=== PATIENT | female | born 1970 | race Caucasian/White ===

== ENCOUNTER 2017-05-31 11:20 | Emergency (ER) | payer BC, OTHER ==
[2017-05-31] MEDS ORDERED: Ketorolac INJ* 60 MG/2 ML VIAL IM ONE (12:43)
[2017-05-31] MEDS ORDERED: Dexamethasone TAB* 4 MG PO ONE (12:43)
[2017-05-31] MEDS ORDERED: Cyclobenzaprine TAB* 10 MG PO ONE (12:44)
[2017-05-31] MEDS ORDERED: oxyCODONE/Acetamin 5/325 MG* TAB PO ONE (12:45)
--- NOTE | 2017-05-31 12:48 | ED ---
Back Pain - HPI Summary HPI Summary: 46F presents with back pain for a week. She was lifting apples a week ago and the next day her pain started. She states that pain is above right hip. She denies any numbness or tingling. She denies any fever. She denies any loss of bowel or bladder or saddle anaesthesia. She went to her primary and they did an xray. She denies any pain down the leg. She has been taking ibuprofen without relief. - History of Current Complaint Chief Complaint: EDBackInjuryPain Stated Complaint: LOWER BACK/HIP PAIN Time Seen by Provider: 05/31/17 11:31 Pain Intensity: 8 - Allergies/Home Medications Allergies/Adverse Reactions: Allergies Allergy/AdvReac Type Severity Reaction Status Date / Time No Known Allergies Allergy Verified 05/31/17 11:24 PMH/Surg Hx/FS Hx/Imm Hx Endocrine/Hematology History: Denies: Hx Anticoagulant Therapy Cardiovascular History: Denies: Hx Myocardial Infarction Infectious Disease History: No Infectious Disease History: Denies: Traveled Outside the [place] in Last 30 Days - Family History Known Family History: Positive: Hypertension - Social History Alcohol Use: Occasionally Substance Use Type: Reports: None Smoking Status (MU): Never Smoked Tobacco Review of Systems Negative: Fever Negative: Chest Pain Negative: Shortness Of Breath Positive: Myalgia - right sided back pain All Other Systems Reviewed And Are Negative: Yes Physical Exam Triage Information Reviewed: Yes Vital Signs On Initial Exam: Initial Vitals Temp Pulse Resp BP Pulse Ox 97.7 F 82 16 153/93 99 05/31/17 11:21 05/31/17 11:21 05/31/17 11:21 05/31/17 11:21 05/31/17 11:21 Vital Signs Reviewed: Yes Appearance: Positive: Pain Distress Skin: Positive: Warm, Dry Head/Face: Positive: Normal Head/Face Inspection Eyes: Positive: Normal, EOMI, JUANA, Conjunctiva Clear ENT: Positive: Normal ENT inspection, Pharynx normal, TMs normal Respiratory/Lung Sounds: Positive: Clear to Auscultation, Breath Sounds Present Cardiovascular: Positive: Normal, RRR Abdomen Description: Positive: Nontender, Soft Bowel Sounds: Positive: Present Musculoskeletal: Positive: Strength/ROM Intact - right hip, Limited @ - back, Other - no midline tenderness back, tenderness to right side of back, pos ANDREW test, neg SLR, good pulses, Neurological: Positive: Reflexes Intact - patella Psychiatric: Positive: Normal - Keven Coma Scale Coma Scale Total: 15 Diagnostics - Vital Signs Vital Signs Temp Pulse Resp BP Pulse Ox 05/31/17 11:21 97.7 F 82 16 153/93 99 - Laboratory Lab Statement: Any lab studies that have been ordered have been reviewed, and results considered in the medical decision making process. - CT back CT Interpretation: Positive (See Comments) - IMPRESSION: MODERATE BROAD-BASED CIRCUMFERENTIAL BULGING THE DISC AT L4-L5 ECCENTRIC TO THE RIGHT AND MODERATE SIZE BROAD-BASED CENTRAL PROTRUSION AT L5-S1 WITH MILD DEGENERATIVE DISC SPACE NARROWING. SUGGEST FOLLOW-UP NONEMERGENT MR IMAGING IF THERE IS PERSISTENT CONCERN OR RADICULAR SYMPTOMS. CT Interpretation Completed By: Radiologist Back Pain Course/Dx - Course Course Of Treatment: 46F presents with back pain for a week. She was lifting apples a week ago and the next day her pain started. She states that pain is above right hip. She denies any numbness or tingling. She denies any fever. She denies any loss of bowel or bladder or saddle anaesthesia. She went to her primary and they did an xray. She denies any pain down the leg. She has been taking ibuprofen without relief. she is in visible pain distress. pos ANDREW test , tenderness of SI joint. 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 neg SLR. CT shows herniated disk. will place on flexeril and steriod and narcotic for break through pain. will have follow up with primary. patient understands and agrees with plan. - Diagnoses Differential Diagnosis/HQI/PQRI: Positive: Herniated Disc, Strain, Sprain Provider Diagnoses: Back pain Discharge - Discharge Plan Condition: Good Disposition: HOME Prescriptions: Cyclobenzaprine TAB* [Flexeril 10 MG TAB*] 10 mg PO TID PRN #15 tab PRN Reason: Pain Methylprednisolone [Medrol Dosepak 4 MG*] 4 mg PO .SEE ERIK INSTRUCTION #1 packet oxyCODONE/Acetamin 5/325 MG* [Percocet 5/325 TAB*] 1 tab PO Q6H PRN #8 tab MDD 4 PRN Reason: Pain - Severe Patient Education Materials: Back Pain (ED) Referrals: Dee Nielsen NP [Primary Care Provider] - Additional Instructions: Follow directions on package for Medrol pack Take muscle relaxers three times a day for 3 days Apply lidocaine patches to area for up to 12 hours in one 24 hour period Use ibuprofen or Tylenol for pain every 6 hours ice/heat area, move as much as possible Follow up with primary within 5 days Return to ED if unable to ambulate or develop any new or worsening symptoms
[2017-05-31 13:15] LABS: Urine Bacteria Absent (Absent); Urine Bilirubin Negative (Negative); Urine Glucose Negative (Negative); Urine Nitrite Negative (Negative)
--- NOTE | 2017-05-31 13:31 | RAD ---
INDICATION: Back pain COMPARISON: None TECHNIQUE: Noncontrast axial source images was performed from the thoracolumbar junction to the sacrum. Coronal and and sagittal reformatted images were generated. FINDINGS: Vertebrae: There is no fracture or acute focal bony lesion. Alignment: The lumbar vertebrae are normally aligned. Central Canal: There is moderate circumferential bulging the disc at L4-L5 mildly eccentric to the right. There is a moderate-sized, broad-based central protrusion at L5-S1. The remaining canal and foramina appear widely patent. MR imaging is a more sensitive method to evaluate the canal and foramina. Intervertebral disc spaces: There is minor disc space narrowing about L5-S1. The height of the remaining disc spaces are well-maintained.. Soft tissues: The paravertebral soft tissues are normal. Other: None IMPRESSION: MODERATE BROAD-BASED CIRCUMFERENTIAL BULGING THE DISC AT L4-L5 ECCENTRIC TO THE RIGHT AND MODERATE SIZE BROAD-BASED CENTRAL PROTRUSION AT L5-S1 WITH MILD DEGENERATIVE DISC SPACE NARROWING. SUGGEST FOLLOW-UP NONEMERGENT MR IMAGING IF THERE IS PERSISTENT CONCERN OR RADICULAR SYMPTOMS.
[2017-05-31 14:47] VITALS: BP 138/72
== END 2017-05-31 14:46 | disposition home or self-care (01) ==
LOC: ED 11:20
DX: M54.9 Dorsalgia, unspecified (principal)
CPT/HCPCS: 72131; 81003; 81015; 96372; 99282; A9270-GY; J1885; J8540

== ENCOUNTER 2017-12-17 03:24 | Emergency (ER) | payer BC, OTHER ==
[2017-12-17] MEDS ORDERED: Metoclopramide IV* 5 MG/ML 2 ML VIAL IV SLOW PU ONE (03:50)
[2017-12-17] MEDS ORDERED: Morphine VIAL* 4 MG/ML VIAL (1 ml vial) IV ONE (03:51)
[2017-12-17 04:08] LABS: ABS Basophils 0 10^3/ul (0-0.2); ABS Eosinophils 0.1 10^3/ul (0-0.6); ABS Lymphocytes 1.8 10^3/ul (1.0-4.8); ABS Monocytes 0.5 10^3/ul (0-0.8); ABS Neutrophils 4.9 10^3/ul (1.5-7.7); ABS Nucleated RBC 0 10^3/ul; Eosinophil % 1.4 % (0-6); Hematocrit 41 % (35-47); Hemoglobin 13.8 g/dl (12.0-16.0); Lymphocyte % 24.8 % (25-47); Mean Corpuscular HGB Conc 33 g/dl (31-36); Mean Corpuscular Hemoglobin 29 pg (27-31); Mean Corpuscular Volume 87 fL (80-97); Mean Platelet Volume 8.1 um3 (7.4-10.4); Nucleated Red Blood Cells % 0.1; Platelet Count 246 10^3/ul (150-450); Red Blood Count 4.73 10^6/ul (4.0-5.4); Red Cell Distribution Width 14 % (10.5-15); White Blood Count 7.3 10^3/ul (3.5-10.8)
[2017-12-17 04:18] LABS: EGFR Non-African American 75.1 (>60)
--- NOTE | 2017-12-17 04:38 | ED ---
Gifty Saldivar Thomas, scribed for Shilpa Padilla MD on 12/17/17 at 0352 . HPI Chest Pain - HPI Summary HPI Summary: The patient is a 47 year old female presenting with a burning sensation to her chest area that radiates to her back that began yesterday at 19:00. She took antacid to no relief of pain. She denies any other symptoms at this time. - History of Current Complaint Chief Complaint: EDChestPainROMI Time Seen by Provider: 12/17/17 03:36 Hx Obtained From: Patient Onset/Duration: Started Hours Ago, Still Present Timing: Constant Current Severity: Moderate Pain Intensity: 5 Pain Scale Used: 0-10 Numeric Chest Pain Radiates: Yes Chest Pain Radiates To:: Back Character: Burning Aggravating Factor(s): Nothing Alleviating Factor(s): Nothing Associated Signs and Symptoms: Positive: Chest Pain. Negative: Fever - Allergy/Home Medications Allergies/Adverse Reactions: Allergies Allergy/AdvReac Type Severity Reaction Status Date / Time No Known Allergies Allergy Verified 05/31/17 11:24 PMH/Surg Hx/FS Hx/Imm Hx Endocrine/Hematology History: Denies: Hx Anticoagulant Therapy Cardiovascular History: Denies: Hx Myocardial Infarction Infectious Disease History: No Infectious Disease History: Denies: Traveled Outside the [place] in Last 30 Days - Family History Known Family History: Positive: Hypertension - Social History Alcohol Use: Occasionally Substance Use Type: Reports: None Smoking Status (MU): Never Smoked Tobacco Review of Systems Negative: Fever Positive: Chest Pain All Other Systems Reviewed And Are Negative: Yes Physical Exam - Summary Physical Exam Summary: VITAL SIGNS: Reviewed. GENERAL: Patient is a well-developed and nourished female who is lying comfortable in the stretcher. Patient is not in any acute respiratory distress. HEAD AND FACE: No signs of trauma. No ecchymosis, hematomas or skull depressions. No sinus tenderness. EYES: PERRLA, EOMI x 2, No injected conjunctiva, no nystagmus. EARS: Hearing grossly intact. Ear canals and tympanic membranes are within normal limits. MOUTH: Oropharynx within normal limits. NECK: Supple, trachea is midline, no adenopathy, no JVD, no carotid bruit, no c- spine tenderness, neck with full ROM. CHEST: Symmetric, no tenderness at palpation LUNGS: Clear to auscultation bilaterally. No wheezing or crackles. CVS: Regular rate and rhythm, S1 and S2 present, no murmurs or gallops appreciated. ABDOMEN: Soft. She has tenderness to her RUQ. No signs of distention. No rebound no guarding, and no masses palpated. Bowel sounds are normal. EXTREMITIES: FROM in all major joints, no edema, no cyanosis or clubbing. NEURO: Alert and oriented x 3. No acute neurological deficits. Speech is normal and follows commands. SKIN: Dry and warm Triage Information Reviewed: Yes Vital Signs On Initial Exam: Initial Vitals Temp Pulse Resp BP Pulse Ox 97.7 F 84 20 161/108 98 12/17/17 03:27 12/17/17 03:27 12/17/17 03:27 12/17/17 03:27 12/17/17 03:27 Vital Signs Reviewed: Yes Diagnostics - Vital Signs Vital Signs Temp Pulse Resp BP Pulse Ox 12/17/17 03:27 97.7 F 84 20 161/108 98 - Laboratory Result Diagrams: 12/17/17 03:50 12/17/17 03:50 Lab Statement: Any lab studies that have been ordered have been reviewed, and results considered in the medical decision making process. - EKG 03:41 Cardiac Rate: NL EKG Rhythm: Sinus Rhythm - at 69 BPM EKG Interpretation: Normal axis. Normal intervals. No acute ischemic change. Re-Evaluation - Re-Evaluation First Eval Re-Evaluation Time: 04:36 Comment: The patient feels better. She will be discharged. Chest Pain Course/Dx - Course Assessment/Plan: The patient is a 47 year old female presenting with a burning sensation to her chest area that radiates to her back that began yesterday at 19 :00. In the ED course the patient was given Reglan and morphine. Bloodwork was obtained. EKG shows normal sinus rhythm with no ischemic changes. Bedside ultrasound did not reveal any gallstones. On re-evaluation, the patient feels better. The patients pain is most likely GERD or esophagitis. THe patient was prescribed Protonix and will follow up with her primary care physician. I highly recommended an official ultrasound as an outpatient to rule out gallstones. - Diagnoses Provider Diagnoses: GERD (gastroesophageal reflux disease), Esophagitis Discharge - Sign-Out/Discharge Documenting (check all that apply): Discharge - Discharge Plan Condition: Stable Disposition: HOME Prescriptions: Pantoprazole TAB (NF) [Protonix TAB (NF)] 40 mg PO DAILY #30 tab Patient Education Materials: Gastroesophageal Reflux Disease (ED) Referrals: Dee Nielsen NP [Primary Care Provider] - 2 Days Additional Instructions: Follow up with your primary care physician in two days. I highly recommend an ultrasound as an outpatient to rule out gallstones. Return to the emergency department for any new or worsening symptoms. The documentation as recorded by the Gifty nole Thomas accurately reflects the service I personally performed and the decisions made by me, Shilpa Padilla MD.
[2017-12-17 04:46] VITALS: BP 144/81
== END 2017-12-17 04:46 | disposition home or self-care (01) ==
LOC: ED 03:24
DX: K21.0 Gastro-esophageal reflux disease with esophagitis (principal); R07.9 Chest pain, unspecified
CPT/HCPCS: 36415; 80053; 82150; 83690; 83735; 84484; 84702; 85025; 93005; 96374; 96375; 99282; J2270; J2765